=== PATIENT | female | born 1945 | race Caucasian/White ===

== ENCOUNTER 2016-06-02 05:42 | Emergency (ER) | payer MEDICARE ==
[2016-06-02 06:12] LABS: BASOPHIL 0.3 % (0-2); EOSINOPHIL 4.4 % (0-7); HCT 34.1 % (37.0-47.0); HGB 11.1 g/dl (12.5-16.0); LYMPHOCYTE 18.3 % (15-48); MCH 28.2 pg (25.0-31.0); MCHC 32.6 g/dL (32.0-36.0); MCV 86.5 fL (78.0-100.0); MONOCYTE 7.5 % (0-12); MPV 8.5 fL (6.0-9.5); NEUTROPHIL 69.5 % (41-80); PLT 149 K/uL (150-400); RBC 3.94 M/uL (4.20-5.40)
[2016-06-02 06:17] LABS: INR 1.41 (0.9-1.2); PROTHROMBIN TIME 16.8 SECONDS (11.7-14.0); PTT 33.7 SECONDS (23.2-31.4)
[2016-06-02 06:24] LABS: LACTIC ACID 1.4 mmol/L (0.5-2.2)
[2016-06-02 06:29] LABS: ALBUMIN 3.1 g/dL (3.4-4.8); BILIRUBIN - TOTAL 0.9 mg/dL (0.1-1.0); CREATININE 0.5 mg/dL (0.5-1.0); GLOBULIN (CALCULATION) 2.1 g/dL (2.2-4.2); POTASSIUM 4.1 mmol/L (3.5-5.1); TOTAL PROTEIN 5.2 g/dL (6.4-8.3)
== END 2016-06-02 06:50 | disposition other institution (70) ==
LOC: FER 05:42
PROVIDERS: Emergency Medicine
DX: K92.0 Hematemesis (principal); K62.5 Hemorrhage of anus and rectum; R00.0 Tachycardia, unspecified
CPT/HCPCS: 36415; 36430; 80053; 82550; 83605; 83690; 84484; 85025; 85610; 85730; 86850; 86900; 86901; 86922; 87040; 93005; 96374; 96375; C9113; J2405; P9016

== ENCOUNTER 2016-07-08 15:05 | Emergency (ER) | payer MEDICARE ==
[2016-07-08 15:55] LABS: BASOPHIL 0.3 % (0-2); EOSINOPHIL 5.5 % (0-7); HCT 27.5 % (37.0-47.0); HGB 8.4 g/dl (12.5-16.0); LYMPHOCYTE 33.9 % (15-48); MCH 24.2 pg (25.0-31.0); MCHC 30.5 g/dL (32.0-36.0); MCV 79.3 fL (78.0-100.0); MONOCYTE 9.8 % (0-12); MPV 8.5 fL (6.0-9.5); NEUTROPHIL 50.5 % (41-80); PLT 210 K/uL (150-400); RBC 3.47 M/uL (4.20-5.40); WBC 3.5 K/uL (4.0-10.5)
[2016-07-08 16:00] LABS: BILIRUBIN NEGATIVE (NEGATIVE); BLOOD NEGATIVE Ery/uL (NEGATIVE); CLARITY CLEAR (CLEAR); COLOR YELLOW (YELLOW); GLUCOSE (U) NORMAL (NORMAL); KETONE (U) NEGATIVE (NEGATIVE); LEUKOCYTES TRACE Leu/uL (NEGATIVE); NITRITE NEGATIVE (NEGATIVE); PROTEIN NEGATIVE (NEGATIVE); SPECIFIC GRAVITY 1.015 (1.001-1.030)
[2016-07-08 16:09] LABS: ALBUMIN 3.2 g/dL (3.4-4.8); BILIRUBIN - TOTAL 0.7 mg/dL (0.1-1.0); CREATININE 0.5 mg/dL (0.5-1.0); GLOBULIN (CALCULATION) 3.1 g/dL (2.2-4.2); POTASSIUM 3.1 mmol/L (3.5-5.1); TOTAL PROTEIN 6.3 g/dL (6.4-8.3)
[2016-07-08 16:11] LABS: BACTERIA 4+
[2016-07-08 16:12] LABS: AMPHETAMINES NEGATIVE (NEGATIVE); BARBITURATES NEGATIVE (NEGATIVE); BENZODIAZEPINES NEGATIVE (NEGATIVE); COCAINE NEGATIVE (NEGATIVE); MARIJUANA (THC) NEGATIVE (NEGATIVE); METHADONE NEGATIVE (NEGATIVE); TRICYCLIC ANTIDEPRESSANT NEGATIVE (NEGATIVE)
== END 2016-07-08 19:10 | disposition home or self-care (01) ==
LOC: FER 15:05
PROVIDERS: Emergency Medicine
DX: F11.10 Opioid abuse, uncomplicated (principal); D50.0 Iron deficiency anemia secondary to blood loss (chronic); M54.9 Dorsalgia, unspecified; G89.29 Other chronic pain; F17.200 Nicotine dependence, unspecified, uncomplicated; Z79.899 Other long term (current) drug therapy; Z79.891 Long term (current) use of opiate analgesic; Z98.890 Other specified postprocedural states
CPT/HCPCS: 36415; 80053; 80305; 81001; 85025; 93005; G0480

== ENCOUNTER 2021-11-26 10:04 | Inpatient (IN) | payer MEDICARE ==
[~2021-11-26] VITALS: Ht 167.6 cm; Wt 69.5 kg
[~2021-11-26 10:04] MED LIST: BUMEX1 MG PO; DESVENLAFAXINE50 M3 PO; DITROPAN5 MG PO; ENULOSE10 GM/15 M PO; FUROSEMIDE 40MG40 MG PO; GABAPENTIN 100100 MG PO; INDERAL LA160 MG PO; K-DUR20 MEQ PO; LIDOCAINE 5% P1 EACH TOP; MOBIC7.5 MG PO; OMEPRAZOLE40 MG PO; TRAMADOL HCL50 MG PO
[2021-11-26 10:48] LABS: BASOPHIL 0.4 % (0-2); EOSINOPHIL 5.6 % (0-7); HGB 13.1 g/dl (12.5-16.0); LYMPHOCYTE 8.3 % (15-48); MCH 30.5 pg (25.0-31.0); MCHC 33.6 g/dL (32.0-36.0); MCV 90.7 fL (78.0-100.0); MONOCYTE 17.1 % (0-12); MPV 9.1 fL (6.0-9.5); NEUTROPHIL 68.2 % (41-80); NRBC 0; PLT 121 K/uL (150-400); RDW 13.7 % (11.5-14.0); WBC 2.5 K/uL (4.0-10.5)
[2021-11-26 11:09] LABS: ALBUMIN 2.9 g/dL (3.4-5.0); BILIRUBIN - TOTAL 1.3 mg/dL (0.2-1.0); BUN/CREAT RATIO (CALC) 15.1 RATIO; CREATININE 0.73 mg/dL (0.51-0.95); GLOBULIN (CALCULATION) 3.4 g/dL; POTASSIUM 3.8 mmol/L (3.5-5.1); TOTAL PROTEIN 6.3 g/dL (6.4-8.2)
[2021-11-26 11:14] LABS: LACTIC ACID 2.2 mmol/L (0.4-1.9)
[2021-11-26 11:42] LABS: BILIRUBIN NEGATIVE (NEGATIVE); BLOOD TRACE-INTACT Ery/uL (NEGATIVE); CLARITY CLEAR (CLEAR); COLOR YELLOW (YELLOW); GLUCOSE (U) NORMAL (NORMAL); LEUKOCYTES NEGATIVE Leu/uL (NEGATIVE); NITRITE NEGATIVE (NEGATIVE); PROTEIN TRACE (LOW) mg/dL (NEGATIVE); UROBILINOGEN 0.2 mg/dL (0.2-1.0); pH 6.5 (5.0-9.0)
[2021-11-26 11:45] LABS: CORONAVIRUS 2019 SARS-COV-2 POSITIVE (NEGATIVE); INFLUENZA A NAA NEGATIVE (NEGATIVE)
[2021-11-27 03:25] LABS: BUN/CREAT RATIO (CALC) 15.9 RATIO; CREATININE 0.63 mg/dL (0.51-0.95); MAGNESIUM 1.6 mg/dL (1.8-2.4); POTASSIUM 3.3 mmol/L (3.5-5.1)
[2021-11-27 03:41] LABS: BASOPHIL 0 % (0-2); EOSINOPHIL 0 % (0-7); HCT 36.8 % (37.0-47.0); HGB 12.4 g/dl (12.5-16.0); LYMPHOCYTE 28.4 % (15-48); MCH 30.7 pg (25.0-31.0); MCHC 33.7 g/dL (32.0-36.0); MCV 91.1 fL (78.0-100.0); MONOCYTE 5.2 % (0-12); MPV 9.4 fL (6.0-9.5); NEUTROPHIL 66.4 % (41-80); NRBC 0; PLT 86 K/uL (150-400); RBC 4.04 M/uL (4.20-5.40)
[2021-11-27 03:46] LABS: WBC 1.2 K/uL (4.0-10.5)
--- NOTE | 2021-11-28 05:02 | NUR ---
AT 0130 PT BECAME VERY CONFUSED, YELLING AND CURSING AT STAFF, PT TRYING TO HIT STAFF WITH CALL HAYNES, CLIMBING OUT OF BED CONTINOUSLY, HALLUCINATION-SEES BUGS AND FLIES,BELEIVES THAT HER DOG IS HERE AND THERE ARE CHILDERN IN THE [place]. PT VERY UPSET THINKS THAT HER CELL PHONE IS IN THE ROOM- THERE IS NOT A CELL PHONE IN ROOM OR DOCUMENTED ON ADMISSION ASSESSMENT. DR. GOODRICH CALLED ABOUT AGITATION ZYPREXA 10MG IM ORDERED SITTER IN ROOM DUE TO SAFETY ISSUE -FALL AND PICKING AT TUBES
[2021-11-28 06:21] LABS: BASOPHIL 0 % (0-2); EOSINOPHIL 0 % (0-7); HCT 41.2 % (37.0-47.0); HGB 14.1 g/dl (12.5-16.0); LYMPHOCYTE 24.1 % (15-48); MCH 30.3 pg (25.0-31.0); MCHC 34.2 g/dL (32.0-36.0); MCV 88.4 fL (78.0-100.0); MONOCYTE 7.3 % (0-12); MPV 9.2 fL (6.0-9.5); NEUTROPHIL 68.6 % (41-80); NRBC 0; PLT 120 K/uL (150-400); RBC 4.66 M/uL (4.20-5.40); RDW 13.9 % (11.5-14.0)
[2021-11-28 06:34] LABS: WBC 2.5 K/uL (4.0-10.5)
--- NOTE | 2021-11-28 06:48 | NUR ---
PT AGGRESSIVE AND YELLING AT STAFF WANTING TO WALK TO BATHROOM OFFERED BEDPAN AND BEDSIDE COMMODE PT REFUSED CLIMBING OUT OF BED PUSHING STAFF. 3 STAFF HAD TO ASSIST PT BACK TO BED SO SHE WOULD NOT FALL . DR GOODRICH NOTIFIED OF BEHAVIOR AND ORDERD ZYPREXA 5 MG IM THAT WAS GIVEN IN LEFT DELTOID
[2021-11-28 07:39] LABS: ALBUMIN 2.7 g/dL (3.4-5.0); ALKALINE PHOSHATASE 132 U/L (46-116); BILIRUBIN - TOTAL 0.8 mg/dL (0.2-1.0); BUN 14 mg/dL (7-18); CHLORIDE 109 mmol/L (98-107); CO2 (BICARBONATE) 25 mmol/L (21-32); GLOBULIN (CALCULATION) 3.1 g/dL; GLUCOSE 113 mg/dL (74-106); TOTAL PROTEIN 5.8 g/dL (6.4-8.2)
[2021-11-28 07:40] LABS: ALT 70 U/L (14-59); AST 151 U/L (15-37); C-REACTIVE PROTEIN < 0.20 mg/dL (<=0.90)
--- NOTE | 2021-11-28 11:00 | NUR ---
PT BECAME VERY COMBATIVE AND REMOVED TELEMETRY BOX AND PULSEOX
--- NOTE | 2021-11-28 23:48 | NUR ---
2014 PT CONTINUOUSLY TRYING TO CLIMB OUT OF BED PT STATES THAT SHE IS LOOKING FOR HER DOG AND SISTER - PT AAOX TO NAME ONLY, TRIED TO REORIENT PT BUT PT ARGUES AND BECOMES AGITATED. WHEN ASSISTING PT BACK TO BED PT TRIED TO HIT AND BITE STAFF. SITTER AT BEDSIDE
--- NOTE | 2021-11-28 23:53 | NUR ---
2130 PT STATED THAT IV HURT AND WAS GRABVBING AT ARM. ATTEMPTED TO INSERT IV X2 WITHOUT SUCCESS- PT UNCOOPERATIVE- ALLAN FROM ER INSERTED AN ULTRASOUND GUIDED 18 G IV TO CAN WITH THE HELP OF STAFF DUE PT PULLING ARM TRYING TO GRAB AND BITE STAFF.
--- NOTE | 2021-11-29 05:36 | NUR ---
0330-PT CONTINUOUSLY CLIMBING OUT OF BED AND PULLING AT IV AND ROCHE CATH, CURSING, TRYING TO HIT AND BITE STAFF. VITA LYONS APRN ORDERED VALIUM 5 MG IVP
[2021-11-29 07:01] LABS: BASOPHIL 0.2 % (0-2); EOSINOPHIL 0.2 % (0-7); HCT 46.8 % (37.0-47.0); HGB 15.8 g/dl (12.5-16.0); LYMPHOCYTE 32.2 % (15-48); MCH 30.3 pg (25.0-31.0); MCHC 33.8 g/dL (32.0-36.0); MCV 89.7 fL (78.0-100.0); MONOCYTE 17.3 % (0-12); MPV 9.8 fL (6.0-9.5); NEUTROPHIL 49.6 % (41-80); NRBC 0; PLT 138 K/uL (150-400); RBC 5.22 M/uL (4.20-5.40); RDW 14.1 % (11.5-14.0)
[2021-11-29 07:11] LABS: WBC 5.5 K/uL (4.0-10.5)
[2021-11-29 07:26] LABS: ALBUMIN 2.7 g/dL (3.4-5.0); BILIRUBIN - TOTAL 1.1 mg/dL (0.2-1.0); BUN/CREAT RATIO (CALC) 20.7 RATIO; CREATININE 0.82 mg/dL (0.51-0.95); POTASSIUM 2.8 mmol/L (3.5-5.1); TOTAL PROTEIN 5.7 g/dL (6.4-8.2)
[2021-11-30 07:50] LABS: BASOPHIL 0.2 % (0-2); EOSINOPHIL 5.8 % (0-7); HCT 50.7 % (37.0-47.0); HGB 16.6 g/dl (12.5-16.0); LYMPHOCYTE 34.8 % (15-48); MCH 30.5 pg (25.0-31.0); MCHC 32.7 g/dL (32.0-36.0); MONOCYTE 10.5 % (0-12); MPV 10.1 fL (6.0-9.5); NEUTROPHIL 48.5 % (41-80); NRBC 0; PLT 139 K/uL (150-400); RBC 5.45 M/uL (4.20-5.40); RDW 14.4 % (11.5-14.0)
[2021-11-30 08:10] LABS: ALBUMIN 2.9 g/dL (3.4-5.0); BUN/CREAT RATIO (CALC) 15.1 RATIO; C-REACTIVE PROTEIN 0.4 mg/dL (<=0.90); CREATININE 1.52 mg/dL (0.51-0.95); GLOBULIN (CALCULATION) 3.1 g/dL; MAGNESIUM 2.1 mg/dL (1.8-2.4); PHOSPHORUS 5.1 mg/dL (2.6-4.7); POTASSIUM 3.7 mmol/L (3.5-5.1)
[2021-11-30 09:00] LABS: AMPHETAMINES NEGATIVE (NEGATIVE); BARBITURATES NEGATIVE (NEGATIVE); ECSTASY (MDMA) NEGATIVE (NEGATIVE); MARIJUANA (THC) NEGATIVE (NEGATIVE); METHADONE NEGATIVE (NEGATIVE); OPIATES NEGATIVE (NEGATIVE); OXYCODONE NEGATIVE (NEGATIVE)
--- NOTE | 2021-11-30 14:50 | NUR ---
13OO PT WAS NOT ON TELY CALLED DR. SCHMIDT AND ASKED IF HE WANT HER ON TELY AND HE SAID YES PT PUT BACK ON TELY.
[2021-11-30] MEDS ORDERED: NORVASC5 MG PO (16:08)
[2021-11-30] MEDS ORDERED: KEFLEX250 MG PO (16:08)
[2021-11-30] MEDS ORDERED: DESVENLAFAXINE100 MG PO (16:09)
[2021-11-30] MEDS ORDERED: MOBIC7.5 MG PO (16:10)
[2021-11-30] MEDS ORDERED: LACTULOSE10 G/15 ML PO (16:10)
[2021-11-30] MEDS ORDERED: FEOSOL325 MG PO (16:10)
[2021-11-30] MEDS ORDERED: MOXIFLOXACIN3 ML EYERT (16:11)
[2021-11-30] MEDS ORDERED: PRILOSEC20 MG PO (16:12)
[2021-11-30] MEDS ORDERED: PREDNISOLONE SO10 ML EYEBOTH (16:14)
[2021-12-01 06:23] LABS: BASOPHIL 0.2 % (0-2); EOSINOPHIL 8.8 % (0-7); HCT 40.7 % (37.0-47.0); HGB 13.6 g/dl (12.5-16.0); LYMPHOCYTE 29.1 % (15-48); MCH 30.7 pg (25.0-31.0); MCHC 33.4 g/dL (32.0-36.0); MCV 91.9 fL (78.0-100.0); MONOCYTE 10.6 % (0-12); MPV 8.9 fL (6.0-9.5); NEUTROPHIL 51.1 % (41-80); NRBC 0; PLT 102 K/uL (150-400); RBC 4.43 M/uL (4.20-5.40); RDW 14.3 % (11.5-14.0)
[2021-12-01 06:58] LABS: BUN/CREAT RATIO (CALC) 23.1 RATIO; CREATININE 1.08 mg/dL (0.51-0.95); POTASSIUM 3.5 mmol/L (3.5-5.1)
--- NOTE | 2021-12-01 15:40 | NUR ---
12/01/21 Ms. Quintero lives at home with her spouse. Their daughter, cares for MR. Quintero. Ms. Quintero has a rollator that she uses at times. - Ms. quintero has been dosplaying confusing while hospitalized. Her daughter, Helen Cobos, reports patient to have mild memory loss; getting confused abt Md appointments or not recalling information given to her. No behaviors are displayed. Ms. Cobos plans on taking Ms. Quintero home. A referral was made to [facility] per family request.
[2021-12-02 06:37] LABS: BASOPHIL 0.2 % (0-2); EOSINOPHIL 9.8 % (0-7); HCT 41.6 % (37.0-47.0); HGB 14.1 g/dl (12.5-16.0); LYMPHOCYTE 22.7 % (15-48); MCH 30.5 pg (25.0-31.0); MCHC 33.9 g/dL (32.0-36.0); MONOCYTE 12.9 % (0-12); MPV 9.8 fL (6.0-9.5); NEUTROPHIL 54.2 % (41-80); NRBC 0; PLT 103 K/uL (150-400); RBC 4.62 M/uL (4.20-5.40); RDW 13.8 % (11.5-14.0); WBC 5.2 K/uL (4.0-10.5)
[2021-12-02 07:05] LABS: ALBUMIN 2.5 g/dL (3.4-5.0); BILIRUBIN - TOTAL 1.4 mg/dL (0.2-1.0); BUN/CREAT RATIO (CALC) 18.8 RATIO; C-REACTIVE PROTEIN 1.7 mg/dL (<=0.90); CREATININE 0.8 mg/dL (0.51-0.95); PHOSPHORUS 2.8 mg/dL (2.6-4.7); POTASSIUM 3.3 mmol/L (3.5-5.1); TOTAL PROTEIN 5.5 g/dL (6.4-8.2)
[2021-12-02 07:14] LABS: MAGNESIUM 1.4 mg/dL (1.8-2.4)
--- NOTE | 2021-12-02 08:00 | NUR ---
PRIMARY RN NOTIFIED MD THAT NONE OF PTS HOME MEDS WERE RESTARTED
--- NOTE | 2021-12-03 22:42 | NUR ---
PT REFUSE TO TAKE PO MEDS. PT EDUCATED ON ORDER AND USE OF MEDS. PT CONTINUE TO SAY DONT WANT TO TAKE IT.
--- NOTE | 2021-12-04 16:06 | NUR ---
12/04/21 02 was ordered from [facility] at 2 L. [facility] was notified of anticipated discharge for 12/05.
--- NOTE | 2021-12-05 17:07 | NUR ---
PATIENT DISCHARGED HOME WITH FAMILY. [facility] FOLLOWING. IV AND HEART MONITOR REMOVED PRIOR TO DISCHARGE. WENT OVER DISCHARGE PAPERWORK OVER THE PHONE WITH DAUGHTER SWATI. VERBALIZED UNDERSTANDING.
== END 2021-12-05 16:59 | disposition home health service (06) | DRG 871 ==
LOC: FER 10:04 → FTCU 17:28
PROVIDERS: Emergency Medicine; Hospitalist; Internal Medicine; Nurse Practitioner; ADMIT Internal Medicine
PROC: 0T9B70Z Drainage of Bladder with Drainage Device, Via Natural or Artificial Opening (ICD-10-PCS; principal; 2021-11-26)
PROC: 3E03329 Introduction of Other Anti-infective into Peripheral Vein, Percutaneous Approach (ICD-10-PCS; 2021-11-26)
PROC: 3E0333Z Introduction of Anti-inflammatory into Peripheral Vein, Percutaneous Approach (ICD-10-PCS; 2021-11-26)
PROC: 8E0ZXY6 Isolation (ICD-10-PCS; 2021-11-26)
DX: A41.89 Other specified sepsis (principal); G93.41 Metabolic encephalopathy; S72.111A Displaced fracture of greater trochanter of right femur, initial encounter for closed fracture; U07.1 COVID-19; J96.01 Acute respiratory failure with hypoxia; J12.82 Pneumonia due to coronavirus disease 2019; M97.01XA Periprosthetic fracture around internal prosthetic right hip joint, initial encounter; N17.9 Acute kidney failure, unspecified; R65.20 Severe sepsis without septic shock; S00.03XA Contusion of scalp, initial encounter; W19.XXXA Unspecified fall, initial encounter; F03.90 Unspecified dementia, unspecified severity, without behavioral disturbance, psychotic disturbance, mood disturbance, and anxiety; K75.81 Nonalcoholic steatohepatitis (NASH); E83.42 Hypomagnesemia; I10 Essential (primary) hypertension; K21.9 Gastro-esophageal reflux disease without esophagitis; I27.20 Pulmonary hypertension, unspecified; Z90.710 Acquired absence of both cervix and uterus; Z90.49 Acquired absence of other specified parts of digestive tract; Z82.49 Family history of ischemic heart disease and other diseases of the circulatory system; Z79.899 Other long term (current) drug therapy; Z28.311 Partially vaccinated for COVID-19; Z86.73 Personal history of transient ischemic attack (TIA), and cerebral infarction without residual deficits
CPT/HCPCS: 36415; 36600; 70450; 70551; 71045; 73522; 80048; 80053; 80305; 81003; 82140; 82803; 83605; 83735; 83880; 84100; 84145; 84484; 85025; 86140; 87040; 92523; 93005; 94010; 94760; 96361; 96365; 96375; 96376; 97110; 97162; 97166; 97530-GP; J0360; J0456; J0692; J0696; J1100; J1650; J1885; J2405; J3360; J3475; J3480; J3486; J7030; J7040; J7050; U0002

== ENCOUNTER 2021-12-06 18:03 | Emergency (ER) | payer MEDICARE ==
[~2021-12-06 18:03] MED LIST changes: +DESVENLAFAXINE100 MG PO; +FEOSOL325 MG PO; +KEFLEX250 MG PO; +LACTULOSE10 G/15 ML PO; +MOXIFLOXACIN3 ML EYERT; +NORVASC5 MG PO; +PREDNISOLONE SO10 ML EYEBOTH; +PRILOSEC20 MG PO
[2021-12-06 19:16] LABS: BASOPHIL 0.4 % (0-2); EOSINOPHIL 4.1 % (0-7); HCT 39.9 % (37.0-47.0); HGB 13.1 g/dl (12.5-16.0); LYMPHOCYTE 26.2 % (15-48); MCH 30.3 pg (25.0-31.0); MCHC 32.8 g/dL (32.0-36.0); MCV 92.1 fL (78.0-100.0); MONOCYTE 12.5 % (0-12); MPV 9.9 fL (6.0-9.5); NEUTROPHIL 56.6 % (41-80); NRBC 0; PLT 155 K/uL (150-400); RBC 4.33 M/uL (4.20-5.40); WBC 4.9 K/uL (4.0-10.5)
[2021-12-06 19:31] LABS: ALBUMIN 2.4 g/dL (3.4-5.0); BUN/CREAT RATIO (CALC) 26.3 RATIO; CREATININE 1.14 mg/dL (0.51-0.95); GLOBULIN (CALCULATION) 3.3 g/dL; POTASSIUM 3.8 mmol/L (3.5-5.1); TOTAL PROTEIN 5.7 g/dL (6.4-8.2)
[2021-12-06 21:43] LABS: BILIRUBIN NEGATIVE (NEGATIVE); BLOOD 2+ Ery/uL (NEGATIVE); CLARITY CLEAR (CLEAR); COLOR YELLOW (YELLOW); GLUCOSE (U) NORMAL (NORMAL); LEUKOCYTES 2+ Leu/uL (NEGATIVE); NITRITE NEGATIVE (NEGATIVE); PROTEIN TRACE (LOW) mg/dL (NEGATIVE); SPECIFIC GRAVITY 1.025 (1.001-1.030); UROBILINOGEN 0.2 mg/dL (0.2-1.0)
[2021-12-06 21:48] LABS: URINARY WBC 20-50
[2021-12-06 21:49] LABS: BACTERIA 2+
== END 2021-12-06 22:50 | disposition home or self-care (01) ==
LOC: FER 18:03 → FMS 22:02 → FER 22:50
PROVIDERS: Emergency Medicine
DX: J96.01 Acute respiratory failure with hypoxia (principal); N39.0 Urinary tract infection, site not specified; I25.10 Atherosclerotic heart disease of native coronary artery without angina pectoris; I10 Essential (primary) hypertension
CPT/HCPCS: 36415; 36600; 71045; 71275; 80053; 81001; 82140; 82803; 84484; 85025; 87088; 93005; 96374; J0696; J2270; J7030; Q9967